=== PATIENT | male | born 1995 | race American Indian/Alaskan Native ===

== ENCOUNTER 2017-07-13 19:41 | Emergency (ER) | payer SELFPAY ==
[2017-07-13 19:41] VITALS: BMI 26.6
[2017-07-13 19:55] VITALS: O2SAT 100
[2017-07-13 20:14] VITALS: RESP 18; TEMP 98.3
--- NOTE | 2017-07-13 21:48 | ED PDOC ---
Arrival/HPI - General Historian: Patient - History of Present Illness Time/Duration: 1 week Symptom Onset: Sudden Symptom Course: Unchanged Activities at Onset: Rest, Light Context: Home <Lidia Bass PA-C - Last Filed: 07/13/17 22:21> <Iain Donahue - Last Filed: 07/13/17 22:24> - General Chief Complaint: Lower Extremity Problem/Injury Time Seen by Provider: 07/13/17 20:08 - History of Present Illness Narrative History of Present Illness (Text): 07/13/17 21:45 A 22 year old male with no significant past medical history presents to the emergency department with left knee pain, worsening with bending of the knee. The patient states that he has been experiencing this pain for the past week. He notes that he runs 5 miles a day, with no change to his routine. The patient also complains of mild discomfort to the left 2nd MCP. States that he is L hand dominant and he also boxes regularly. He states that he cannot make a complete fist. The patient denies fevers, chills, back pain, neck pain, weakness, numbness or any other complaint. (Lidia Bass PA-C) Past Medical History - Provider Review Nursing Documentation Reviewed: Yes - Infectious Disease Hx of Infectious Diseases: None - Tetanus Immunization Tetanus Immunization: Up to Date - Pulmonary Hx Asthma: Yes - Psychiatric Hx Depression: No Hx Emotional Abuse: No Hx Physical Abuse: No Hx Substance Use: No - Anesthesia Hx Anesthesia: No - Suicidal Assessment Feels Threatened In Home Enviroment: No <Lidia Bass PA-C - Last Filed: 07/13/17 22:21> Family/Social History - Physician Review Nursing Documentation Reviewed: Yes Family/Social History: No Known Family HX Smoking Status: Unknown If Ever Smoked Hx Alcohol Use: Yes Hx Substance Use: No Hx Substance Use Treatment: No <Lidia Bass PA-C - Last Filed: 07/13/17 22:21> Allergies/Home Meds <Lidia Bass PA-C - Last Filed: 07/13/17 22:21> <Iain Donahue - Last Filed: 07/13/17 22:24> Allergies/Adverse Reactions: Allergies sea food Allergy (Uncoded 07/13/17 19:55) RASH Review of Systems - Physician Review All systems were reviewed & negative as marked: Yes - Review of Systems Constitutional: absent: Fevers, Night Sweats ENT: absent: Sore Throat Respiratory: absent: SOB, Cough Cardiovascular: absent: Chest Pain Gastrointestinal: absent: Abdominal Pain, Diarrhea, Nausea, Vomiting Musculoskeletal: absent: Back Pain, Neck Pain Neurological: absent: Headache, Dizziness <Lidia Bass PA-C - Last Filed: 07/13/17 22:21> Physical Exam Vital Signs Reviewed: Yes Temperature: Afebrile Blood Pressure: Normal Pulse: Regular Respiratory Rate: Normal Appearance: Positive for: Well-Appearing, Non-Toxic, Comfortable Pain Distress: None Mental Status: Positive for: Alert and Oriented X 3 - Systems Exam Head: Present: Atraumatic, Normocephalic Pupils: Present: PERRL Extroacular Muscles: Present: EOMI Conjunctiva: Present: Normal Mouth: Present: Moist Mucous Membranes Neck: Present: Normal Range of Motion Back: Present: Normal Inspection Upper Extremity: Present: Normal Inspection, Normal ROM, NORMAL PULSES, Neurovascularly Intact, Capillary Refill < 2s, Norm 2-Pt Discrimination. No: Cyanosis, Edema, Tenderness, Swelling, Erythema, Temperature Abnormalties, Deformity Lower Extremity: Present: Normal Inspection, NORMAL PULSES, Normal ROM, Neurovascularly Intact, Capillary Refill < 2 s. No: Edema, CALF TENDERNESS, Tenderness, Swelling, Erythema, Deformity, Temperature Abnormalties Neurological: Present: GCS=15, CN II-XII Intact, Speech Normal Skin: Present: Warm, Dry, Normal Color. No: Rashes Psychiatric: Present: Alert, Oriented x 3, Normal Insight, Normal Concentration <Lidia Bass PA-C - Last Filed: 07/13/17 22:21> Vital Signs Temp Pulse Resp BP Pulse Ox 07/13/17 20:12 98.3 F 66 18 140/69 100 07/13/17 19:52 98.6 F 66 16 122/74 100 Medical Decision Making <Lidia Bass PA-C - Last Filed: 07/13/17 22:21> <Iain Donahue - Last Filed: 07/13/17 22:24> ED Course and Treatment: 07/13/17 21:48 Impression: A 22 year old male presents with left knee pain and left 2nd MCP pain. DDx : overuse syndrome, r/o stress fracture, sprain / strain Plan: -- Left Hand/ Left Knee X-Ray -- Reassess and disposition Progress Notes: XR L hand: no fracture, no dislocation, as read by PA XR L knee: +soft tissue swelling, no fracture, no dislocation, as read by PA Patient advised that official radiology read of XR is still pending and will call the patient if there is any discrepancy within 24 hours. X-ray results discussed with the patient in great detail. Dx of runner's knee d/ w the patient in great detail, advised that the cause can be overuse syndrome. Based on history, exam and diagnostic results plan will be for outpatient follow -up. Advised RICE to the L knee and L hand. Jonathon wrap applied to left knee by PA. Instructed to follow up with primary care physician or orthopedic referral in 1-2 days without fail. Advised to take medication as prescribed. Return to the emergency room at any time for any new or worsening symptoms. Patient states he fully agrees with and understands discharge instructions. States that he agrees with the plan and disposition. Verbalized and repeated discharge instructions and plan. I have given the patient opportunity to ask any additional questions. (Lidia Bass PA-C) - RAD Interpretation Radiology Orders: 07/13/17 20:52 HAND LEFT 3 VIEWS ROUTINE [RAD] Stat KNEE LEFT 2 VIEWS (AP & LAT) [RAD] Stat - PA / ASSEMBLER CAMPER / Resident Statement / has reviewed & agrees with the documentation as recorded. <Lidia Bass PA-C - Last Filed: 07/13/17 22:21> - PA / ASSEMBLER CAMPER / Resident Statement / has reviewed & agrees with the documentation as recorded. <Iain Donahue - Last Filed: 07/13/17 22:24> Disposition/Present on Arrival - Present on Arrival Any Indicators Present on Arrival: No History of DVT/PE: No History of Uncontrolled Diabetes: No Urinary Catheter: No History of Decub. Ulcer: No History Surgical Site Infection Following: None - Disposition Have Diagnosis and Disposition been Completed?: No Disposition Time: 22:00 Patient Plan: Discharge <Lidia Bass PA-C - Last Filed: 07/13/17 22:21> <Iain Donahue - Last Filed: 07/13/17 22:24> - Disposition Diagnosis: Knee pain, left, Left hand pain Disposition: HOME/ ROUTINE Condition: STABLE Discharge Instructions (ExitCare): Patellofemoral Pain Syndrome (ED), Knee Pain (ED), Arthralgia (ED) Print Language: CITIZEN OF [place] Additional Instructions: Thank you for letting us take care of you today. You were treated for L knee pain, consider runner's knee, L hand pain. The emergency medical care you received today was directed at your acute symptoms. If you were prescribed any medication, please fill it and take as directed. It may take several days for your symptoms to resolve. Return to the Emergency Department if your symptoms worsen, do not improve, or if you have any other problems. Please contact your doctor in 2 days for re-evaluation and follow up / or call one of the physicians/clinics you have been referred to that are listed on the Patient Visit Information form that is included in your discharge packet. Bring any paperwork you were given at discharge with you along with any medications you are taking to your follow up visit. Our treatment cannot replace ongoing medical care by a primary care provider (PCP) outside of the emergency department. Thank you for allowing the [email or web address] team to be part of your care today. If you had an X-Ray : A Radiologist will review the ED reading if any change in treatment is needed we will contact you. Prescriptions: Meloxicam [Mobic] 15 mg PO DAILY PRN #30 tab PRN Reason: Pain, Moderate (4-7) Referrals: Vidal Ceballos [Primary Care Provider] - Follow up with primary Forms: [facility] (Albanian), WORK NOTE
[2017-07-14 05:17] VITALS: BP 135/70; PULSE 70
--- NOTE | 2017-07-14 10:57 | RAD ---
PROCEDURE: Left Hand Radiographs. HISTORY: Pain. No history of recent/ related trauma provided COMPARISON: None. FINDINGS: BONES: Normal. No fracture. JOINTS: Normal. No osteoarthritic changes. SOFT TISSUES: Normal. OTHER FINDINGS: None. IMPRESSION: No significant or acute findings to account for/ related to the clinical presentation. Please note: No preliminary report/ innterpretation of this examination provided by emergency department personnel.
--- NOTE | 2017-07-14 10:58 | RAD ---
PROCEDURE: Left Knee Radiographs. HISTORY: Pain. No history of recent/ related trauma provided COMPARISON: None. FINDINGS: BONES: Normal. No fracture. JOINTS: Normal. No osteoarthritis. JOINT EFFUSION: None. OTHER FINDINGS: None. IMPRESSION: No significant or acute findings to account for/ related to the clinical presentation. Please note: No preliminary report/ innterpretation of this examination provided by emergency department personnel.
== END 2017-07-13 22:34 | disposition home or self-care (01) ==
LOC: ED 19:41
DX: M25.562 Pain in left knee (principal); M79.642 Pain in left hand

== ENCOUNTER 2017-10-30 14:31 | Emergency (ER) | payer OTHER, MEDICAID ==
[2017-10-30 14:32] VITALS: BMI 26.6
[2017-10-30 14:45] VITALS: BP 122/73; PULSE 62; RESP 18; TEMP 98.6; O2SAT 99
--- NOTE | 2017-10-30 15:16 | ED PDOC ---
Arrival/HPI - General Chief Complaint: Back Pain Time Seen by Provider: 10/30/17 15:15 - History of Present Illness Narrative History of Present Illness (Text): 22 y/o M c no PMHx p/w back pain x 1 day. Patient states slipped on slipper floor and fell onto back. Now complains of pain in focal area of upper L back, worse with movement. Denies headstrike, LOC, nausea, vomiting, vision change, urinary or bowel changes, numbness or weakness. Denies dyspnea or pain with breathing. Past Medical History - Infectious Disease Hx of Infectious Diseases: None - Tetanus Immunization Tetanus Immunization: Up to Date - Pulmonary Hx Asthma: Yes - Psychiatric Hx Depression: No Hx Emotional Abuse: No Hx Physical Abuse: No Hx Substance Use: No - Anesthesia Hx Anesthesia: No Hx Anesthesia Reactions: No Hx Malignant Hyperthermia: No - Suicidal Assessment Feels Threatened In Home Enviroment: No Family/Social History Family/Social History: No Known Family HX Smoking Status: Unknown If Ever Smoked Hx Alcohol Use: Yes Hx Substance Use: No Hx Substance Use Treatment: No Allergies/Home Meds Allergies/Adverse Reactions: Allergies sea food Allergy (Uncoded 07/13/17 19:55) RASH Review of Systems - Physician Review All systems were reviewed & negative as marked: Yes - Review of Systems Constitutional: absent: Fevers Cardiovascular: absent: Chest Pain Physical Exam - Physical Exam Narrative Physical Exam (Text): Gen: NAD Head: NC/AT Neck: No midline tenderness. Back: No midline tenderness. Area of swelling L parasternal in thoracic area. No rib tenderness. No deformity. No crepitus. Extremities: FROM x 4. Gait: Normal. Vital Signs Temp Pulse Resp BP Pulse Ox 10/30/17 14:32 98.6 F 62 18 122/73 99 Medical Decision Making ED Course and Treatment: Young patient with mechanical fall and contusion. Continue NSAIDs, ice pack, rest. Instructed to return to ED for any dyspnea, vomiting, urinary or bowel changes. Disposition/Present on Arrival - Present on Arrival Any Indicators Present on Arrival: No History of DVT/PE: No History of Uncontrolled Diabetes: No Urinary Catheter: No History of Decub. Ulcer: No History Surgical Site Infection Following: None - Disposition Have Diagnosis and Disposition been Completed?: Yes Diagnosis: Back contusion Disposition: HOME/ ROUTINE Disposition Time: 15:15 Patient Plan: Discharge Condition: STABLE Discharge Instructions (ExitCare): Contusion in Adults (ED) Prescriptions: Ibuprofen [Motrin] 600 mg PO Q6 #25 tab Forms: [facility] (Tajik), WORK NOTE
== END 2017-10-30 15:38 | disposition home or self-care (01) ==
LOC: ED 14:31
DX: S20.222A Contusion of left back wall of thorax, initial encounter (principal); W01.0XXA Fall on same level from slipping, tripping and stumbling without subsequent striking against object, initial encounter

== ENCOUNTER 2017-11-04 03:56 | Emergency (ER) | payer OTHER, MEDICAID ==
[2017-11-04 03:56] VITALS: BMI 26.6
[2017-11-04 04:09] VITALS: BP 126/72; PULSE 73; RESP 16; TEMP 98.2; O2SAT 100
--- NOTE | 2017-11-04 04:35 | ED PDOC ---
Arrival/HPI - General Chief Complaint: Back Pain Time Seen by Provider: 11/04/17 04:02 Historian: Patient - History of Present Illness Narrative History of Present Illness (Text): 11/04/17 04:24 Obdulio Johnson is a 22 year old male who presents to the Emergency department complaining of back pain for the past few days. Patient states he fell on to his back while at work on 10/30/17 and was seen in the Emergency department for back pain. Patient was discharged home and had outpatient XRs performed, which were negative. Patient states he has been taking Advil, but denies any significant relief.States his working has not helped. Patient able to ambulate without difficulty. Patient denies any neck pain, headache, weakness/numbness/ tingling in the extremities, saddle paresthesias, dizziness, fever, chest pain, nausea, vomiting, or any other complaints. Time/Duration: < week (5 days) Symptom Onset: Gradual Symptom Course: Unchanged Activities at Onset: Light Context: Work Past Medical History - Provider Review Nursing Documentation Reviewed: Yes - Infectious Disease Hx of Infectious Diseases: None - Tetanus Immunization Tetanus Immunization: Up to Date - Cardiac Hx Cardiac Disorders: No - Pulmonary Hx Respiratory Disorders: Yes Hx Asthma: Yes - Psychiatric Hx Depression: No Hx Emotional Abuse: No Hx Physical Abuse: No Hx Substance Use: No - Anesthesia Hx Anesthesia: No Hx Anesthesia Reactions: No Hx Malignant Hyperthermia: No - Suicidal Assessment Feels Threatened In Home Enviroment: No Family/Social History - Physician Review Nursing Documentation Reviewed: Yes Family/Social History: Unknown Family HX Smoking Status: Unknown If Ever Smoked Hx Alcohol Use: Yes Frequency of alcohol use: Socially Hx Substance Use: No Hx Substance Use Treatment: No Allergies/Home Meds Allergies/Adverse Reactions: Allergies sea food Allergy (Uncoded 07/13/17 19:55) RASH Review of Systems - Physician Review All systems were reviewed & negative as marked: Yes - Review of Systems Constitutional: Normal. absent: Fevers Eyes: Normal ENT: Normal Respiratory: Normal. absent: SOB, Cough Cardiovascular: Normal. absent: Chest Pain Gastrointestinal: Normal. absent: Abdominal Pain, Diarrhea, Vomiting Genitourinary Male: Normal. absent: Dysuria, Frequency, Hematuria, Urinary Output Changes Musculoskeletal: Back Pain. absent: Neck Pain Skin: Normal. absent: Rash Neurological: Normal. absent: Headache, Dizziness Endocrine: Normal Hemo/Lymphatic: Normal Psychiatric: Normal Physical Exam Vital Signs Reviewed: Yes Vital Signs Temp Pulse Resp BP Pulse Ox 11/04/17 04:07 98.2 F 73 16 126/72 100 Temperature: Afebrile Blood Pressure: Normal Pulse: Regular Respiratory Rate: Normal Appearance: Positive for: Well-Appearing, Non-Toxic, Comfortable Pain Distress: None Mental Status: Positive for: Alert and Oriented X 3 - Systems Exam Head: Present: Atraumatic, Normocephalic Pupils: Present: PERRL Extroacular Muscles: Present: EOMI Conjunctiva: Present: Normal Mouth: Present: Moist Mucous Membranes Neck: Present: Normal Range of Motion Respiratory/Chest: Present: Clear to Auscultation, Good Air Exchange. No: Respiratory Distress, Accessory Muscle Use Cardiovascular: Present: Regular Rate and Rhythm, Normal S1, S2. No: Murmurs Abdomen: Present: Normal Bowel Sounds. No: Tenderness, Distention, Peritoneal Signs Back: Present: Normal Inspection, Other (mild muscle spasm). No: CVA Tenderness , Midline Tenderness (No dorsal spinal tenderness), Paraspinal Tenderness Upper Extremity: Present: Normal Inspection. No: Cyanosis, Edema Lower Extremity: Present: Normal Inspection. No: Edema Neurological: Present: GCS=15, CN II-XII Intact, Speech Normal, Motor Func Grossly Intact, Normal Sensory Function Skin: Present: Warm, Dry, Normal Color. No: Rashes Psychiatric: Present: Alert, Oriented x 3, Normal Insight, Normal Concentration Medical Decision Making ED Course and Treatment: 11/04/17 04:24 Impression: 22 year old male complaining of back pain s/p fall 5 days prior. Plan: -- Naproxen -- Flexeril -- Reassess and disposition Prior Visits: Notes and results from previous visits were reviewed. On 10/30/2017, pt was seen in the Emergency department s/p fall with back pain. Pt was d/c home Progress Notes: 11/04/17 05:15 On re-evaluation, patient feels better and is in no acute distress. I have discussed the results and plan with the patient, who expresses understanding. Patient in agreement with plan to be discharged home. Patient is stable for discharge. Patient was instructed to follow up with physician or return if symptoms worsen or new concerning symptoms arise. - Medication Orders Current Medication Orders: Discontinued Medications Cyclobenzaprine HCl (Flexeril) 10 mg PO ONCE ONE Stop: 11/04/17 04:29 Last Admin: 11/04/17 04:46 Dose: 10 mg Naproxen (Anaprox Ds) 550 mg PO BID NIKOLAS Naproxen (Anaprox Ds) 550 mg PO ONCE ONE Stop: 11/04/17 04:47 Last Admin: 11/04/17 04:51 Dose: 550 mg - Scribe Statement The provider has reviewed the documentation as recorded by the Luis Valentin Provider Scribe Attestation: All medical record entries made by the Luis were at my direction and personally dictated by me. I have reviewed the chart and agree that the record accurately reflects my personal performance of the history, physical exam, medical decision making, and the department course for this patient. I have also personally directed, reviewed, and agree with the discharge instructions and disposition. Disposition/Present on Arrival - Present on Arrival Any Indicators Present on Arrival: No History of DVT/PE: No History of Uncontrolled Diabetes: No Urinary Catheter: No History of Decub. Ulcer: No History Surgical Site Infection Following: None - Disposition Have Diagnosis and Disposition been Completed?: Yes Diagnosis: Back strain, Muscle spasm Disposition: HOME/ ROUTINE Disposition Time: 05:15 Patient Plan: Discharge Patient Problems: Current Active Problems Problem Status Onset Back strain Acute Muscle spasm Acute Condition: STABLE Discharge Instructions (ExitCare): Muscle Strain (ED), Muscle Spasm (ED) Additional Instructions: Rest/no strenuous physical activity/take meds as prescribed/follow up with your doctor this week Prescriptions: Cyclobenzaprine [Cyclobenzaprine HCl] 10 mg PO TID PRN #15 tab PRN Reason: Muscle Spasm Naproxen [Naprosyn] 500 mg PO BID PRN #14 tab PRN Reason: Pain Forms: [facility] (Nepalese), WORK NOTE
[2017-11-04] MEDS ORDERED: Naproxen 550 mg Tab PO ONE (04:46)
[2017-11-04] MEDS ORDERED: Naproxen 550 mg Tab PO SCH (10:00)
== END 2017-11-04 05:30 | disposition home or self-care (01) ==
LOC: ED 03:56
DX: S29.012D Strain of muscle and tendon of back wall of thorax, subsequent encounter (principal); W01.0XXD Fall on same level from slipping, tripping and stumbling without subsequent striking against object, subsequent encounter; M62.838 Other muscle spasm

== ENCOUNTER 2018-12-26 18:31 | Emergency (ER) | payer MEDICAID, OTHER ==
[2018-12-26 18:32] VITALS: BMI 26.6
[2018-12-26 18:53] VITALS: RESP 18; TEMP 97.7
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
[2018-12-26 21:12] VITALS: BP 125/83; PULSE 75; O2SAT 99
[2018-12-26] MEDS ORDERED: Bacitracin 500 Units/gm Oint Foilpak UD TOP ONE (21:16)
--- NOTE | 2018-12-27 14:40 | RAD ---
Date of service: 12/26/2018 PROCEDURE: Radiographs of the left elbow. HISTORY: fall 1 week ago, posterior pain COMPARISON: No prior. TECHNIQUE: 3 views obtained. FINDINGS: BONES: Bone alignment and mineralization are normal. There is no acute displaced fracture or bone destruction. JOINTS: Normal. SOFT TISSUES: Normal. JOINT EFFUSION: None. OTHER FINDINGS: None IMPRESSION: No acute fracture or dislocation
--- NOTE | 2018-12-27 14:41 | RAD ---
PROCEDURE: Radiographs of the left great toe. TECHNIQUE:: AP radiograph of the left foot, with oblique and lateral view of the left great toe. 3 view obtained. COMPARISON: None. FINDINGS: BONES: Bone alignment and mineralization are normal. There is no acute displaced fracture or bone destruction. JOINTS: Normal. SOFT TISSUES: Normal. OTHER FINDINGS: None. IMPRESSION: No acute fracture or dislocation.
== END 2018-12-26 21:33 | disposition home or self-care (01) ==
LOC: ED 18:31
DX: S50.312A Abrasion of left elbow, initial encounter (principal); S50.02XA Contusion of left elbow, initial encounter; W05.2XXA Fall from non-moving motorized mobility scooter, initial encounter; L60.0 Ingrowing nail; L08.9 Local infection of the skin and subcutaneous tissue, unspecified